=== PATIENT | male | born 1985 | race Caucasian/White ===

== ENCOUNTER → 2021-06-30 10:40 | Outpatient (BNVA) | payer OTHER, SELFPAY | PROVIDERS: PCP Internal Medicine; Referring Provider Internal Medicine; Visit Provider Internal Medicine | DX: R94.31 Abnormal electrocardiogram [ECG] [EKG] (principal); R00.0 Tachycardia, unspecified; I10 Essential (primary) hypertension; F10.10 Alcohol abuse, uncomplicated; Z72.0 Tobacco use | CPT/HCPCS: 93005; 99202 ==

== ENCOUNTER 2023-04-02 11:06 | Outpatient (REF) | payer OTHER, SELFPAY ==
[2023-04-02 13:11] LABS: MANUAL DIFF FLAG NO
[2023-04-02 13:27] LABS: Basophils Percent Auto 0.3 % (0-2); Eosinophils Absolute Auto 0.1 X10*3/uL (0.0-0.4); Eosinophils Percent Auto 0.7 % (0-4); Hematocrit 45.2 % (42.0-52.0); Hemoglobin 15.8 g/dl (14.0-18.0); Imm Gran Abs Auto 0.06 X10*3/uL (0.00-0.03); Imm Gran Pct Auto 0.4 % (0.0-0.4); Lymphocytes Percent Auto 22.7 % (20-40); Mean Corpuscular Hemoglobin 32.4 pg (27.0-33.0); Mean Corpuscular Volume 92.6 fL (80.0-98.0); Mean Platelet Volume 10.8 fL (9.4-12.4); Monocytes Absolute Auto 0.7 X10*3/uL (0.1-1.2); Monocytes Percent Auto 5.2 % (2-11); Neutrophils Absolute Auto 9.5 x10*3/uL (2.0-8.3); Neutrophils Percent Auto 70.7 % (45-73); Platelet Count 196 X10*3/uL (160-400); Red Blood Count 4.88 X10*6/uL (4.60-5.80); Red Cell Distribution Width 13.4 % (11.0-16.0); White Blood Count 13.4 X10*3/uL (4.8-10.8)
[2023-04-02 15:16] LABS: Alanine Aminotransferase 37 U/L (0-40); Albumin Level 4.4 g/dL (3.5-5.0); Alkaline Phosphatase 98 U/L (39-117); Anion Gap 17 (12-20); Aspartate Amino Transferase 24 U/L (5-37); Bilirubin Total 0.5 mg/dL (0.0-1.0); Blood Urea Nitrogen 9 mg/dL (9-16); Calcium 9.6 mg/dL (8.4-10.2); Carbon Dioxide 21 mmol/L (22-29); Chloride 105 mmol/L (96-108); Estimated Glomerular Filt Rate > 60; Glucose Random 84 mg/dL (60-115); Potassium 4.2 mmol/L (3.3-5.1); Sodium 139 mmol/L (135-145); Total Protein 7.7 g/dL (6.5-8.0)
[2023-04-05 10:33] LABS: Absolute CD3 Count 2173 cells/uL (840-3060); Absolute CD4 Count 1287 cells/uL (490-1740); Absolute CD8 Count 902 cells/uL (180-1170); Absolute Lymphocytes 3236 cells/uL (850-3900); CD4 CD8 Ratio 1.43 (0.86-5.00); Percent CD3 Cells 67 % (57-85); Percent CD4 Cells 40 % (30-61); Percent CD8 Cells 28 % (12-42)
[2023-04-06 20:13] LABS: HIV RNA PCR Qn Copies 39 copies/mL (NOT DETECTED); HIV RNA PCR Qn Log Copies 1.59 (NOT DETECTED)
== END 2023-04-02 11:07 | disposition home or self-care (01) ==
LOC: HO.HHCL 11:06
PROVIDERS: Visit Provider Family Medicine
DX: B20 Human immunodeficiency virus [HIV] disease (principal)
CPT/HCPCS: 36415; 80053; 85025; 86359; 86360; 87536

== ENCOUNTER 2023-10-07 08:19 | Outpatient (REF) | payer OTHER, SELFPAY ==
[2023-10-07 11:29] LABS: MANUAL DIFF FLAG NO
[2023-10-07 11:42] LABS: Basophils Percent Auto 0.3 % (0-2); Eosinophils Percent Auto 0.3 % (0-4); Hematocrit 46.3 % (42.0-52.0); Hemoglobin 16.1 g/dl (14.0-18.0); Imm Gran Abs Auto 0.06 X10*3/uL (0.00-0.03); Imm Gran Pct Auto 0.4 % (0.0-0.4); Lymphocytes Absolute Auto 1.9 X10*3/uL (1.2-4.9); Lymphocytes Percent Auto 13.9 % (20-40); Mean Corpuscular HGB Conc 34.8 g/dl (31.0-36.0); Mean Corpuscular Volume 94.9 fL (80.0-98.0); Mean Platelet Volume 11.2 fL (9.4-12.4); Monocytes Absolute Auto 0.6 X10*3/uL (0.1-1.2); Monocytes Percent Auto 4.3 % (2-11); Neutrophils Absolute Auto 11.1 x10*3/uL (2.0-8.3); Neutrophils Percent Auto 80.8 % (45-73); Platelet Count 187 X10*3/uL (160-400); Red Blood Count 4.88 X10*6/uL (4.60-5.80); Red Cell Distribution Width 13.8 % (11.0-16.0); White Blood Count 13.7 X10*3/uL (4.8-10.8)
[2023-10-07 12:23] LABS: Alanine Aminotransferase 31 U/L (0-40); Albumin Level 4.5 g/dL (3.5-5.0); Alkaline Phosphatase 92 U/L (39-117); Anion Gap 13 (12-20); Aspartate Amino Transferase 26 U/L (5-37); Bilirubin Total 0.6 mg/dL (0.0-1.0); Blood Urea Nitrogen 10 mg/dL (9-16); Calcium 9.5 mg/dL (8.4-10.2); Carbon Dioxide 24 mmol/L (22-29); Chloride 105 mmol/L (96-108); Cholesterol 139 mg/dL (<200); Estimated Glomerular Filt Rate > 60; Glucose Random 98 mg/dL (60-115); HDL Cholesterol 26 mg/dL (>40); LDL Cholesterol Calculated 72 mg/dL (<100); Potassium 4.1 mmol/L (3.3-5.1); Sodium 138 mmol/L (135-145); Syphilis Screen Nonreactive (Nonreactive); Total Protein 7.9 g/dL (6.5-8.0); Triglycerides 205 mg/dL (<150); ~HepC Num1 0.07 S/CO (0.00-0.79); ~Hepatitis C Antibody Nonreactive (Nonreactive)
[2023-10-07 13:29] LABS: CT PCR NOT DETECTED (Not Detect.); NG PCR NOT DETECTED (Not Detect.)
[2023-10-07 13:34] LABS: Reflex LDLD? No
[2023-10-08 12:24] LABS: Absolute CD3 Count 1375 cells/uL (840-3060); Absolute CD4 Count 831 cells/uL (490-1740); Absolute CD8 Count 544 cells/uL (180-1170); Absolute Lymphocytes 1898 cells/uL (850-3900); CD4 CD8 Ratio 1.53 (0.86-5.00); Percent CD3 Cells 72 % (57-85); Percent CD4 Cells 44 % (30-61); Percent CD8 Cells 29 % (12-42)
[2023-10-08 18:52] LABS: HIV RNA PCR Qn Copies 179 copies/mL (NOT DETECTED); HIV RNA PCR Qn Log Copies 2.25 (NOT DETECTED)
[2023-10-10 17:17] LABS: TS Negative Control Passed; TS Panel A 1; TS Panel B 1; TS Positive Control Passed; TSpotTB Negative (Negative)
== END 2023-10-07 08:20 | disposition home or self-care (01) ==
LOC: HO.HHCL 08:19
PROVIDERS: PCP Student in an Organized Health Care Education/Training Program; Visit Provider Student in an Organized Health Care Education/Training Program
DX: B20 Human immunodeficiency virus [HIV] disease (principal)
CPT/HCPCS: 0353U; 80053; 80061; 85025; 86359; 86360; 86481; 86780; 86803; 87536

== ENCOUNTER 2023-12-09 15:14 | Outpatient (REF) | payer OTHER, SELFPAY ==
[2023-12-10 03:43] LABS: HBS Num1 > 1000.00 mIU/mL (0-7.99); HBc Num1 0.06 S/CO (0.00-0.79); Hepatitis B Core Antibody Nonreactive (Nonreactive); ~Hepatitis B Surface Antibody REACTIVE (Nonreactive)
[2023-12-11 18:58] LABS: HIV RNA PCR Qn Copies 335 copies/mL (NOT DETECTED); HIV RNA PCR Qn Log Copies 2.53 (NOT DETECTED)
== END 2023-12-09 15:15 | disposition home or self-care (01) ==
LOC: HO.CHCLDS 15:14
PROVIDERS: Referring Provider Student in an Organized Health Care Education/Training Program; Visit Provider Internal Medicine
DX: B20 Human immunodeficiency virus [HIV] disease (principal); Z11.59 Encounter for screening for other viral diseases
CPT/HCPCS: 36415; 86704; 86706; 87536

== ENCOUNTER 2023-12-15 13:09 | Outpatient (REF) | payer OTHER, SELFPAY ==
[2024-01-01 02:08] LABS: HIV 1 Integrase Proviral DNA DETECTED; HIV 1 PR RT Proviral DNA DETECTED
== END 2023-12-15 13:10 | disposition home or self-care (01) ==
LOC: HO.HHCL 13:09
PROVIDERS: Visit Provider Student in an Organized Health Care Education/Training Program
DX: B20 Human immunodeficiency virus [HIV] disease (principal)
CPT/HCPCS: 36415; 87900; 87901; 87906

== ENCOUNTER 2023-12-27 14:56 | Outpatient (REF) | payer OTHER, SELFPAY ==
[2023-12-30 17:04] LABS: HIV RNA PCR Qn Copies <20 Copies/mL; HIV RNA PCR Qn Log Copies <1.30 Log cps/mL
[2024-01-08 09:44] LABS: HIV 1 Integrase Proviral DNA DETECTED; HIV 1 PR RT Proviral DNA DETECTED
== END 2023-12-27 14:57 | disposition home or self-care (01) ==
LOC: HO.HHCL 14:56
PROVIDERS: Visit Provider Student in an Organized Health Care Education/Training Program
DX: B20 Human immunodeficiency virus [HIV] disease (principal)
CPT/HCPCS: 36415; 87536; 87900; 87901; 87906

== ENCOUNTER 2024-01-03 | Outpatient (REF) | payer OTHER, SELFPAY ==
[2024-01-21 07:03] LABS: HPV MRNA E6/E7 Rectal NOT DETECTED
== END 2024-01-03 00:01 | disposition home or self-care (01) ==
LOC: HO.HHCL
PROVIDERS: Visit Provider Student in an Organized Health Care Education/Training Program
DX: B20 Human immunodeficiency virus [HIV] disease (principal); R85.610 Atypical squamous cells of undetermined significance on cytologic smear of anus (ASC-US)
CPT/HCPCS: 36415; 87624

== ENCOUNTER 2024-06-22 13:51 | Outpatient (REF) | payer OTHER, SELFPAY ==
[2024-06-22 17:02] LABS: MANUAL DIFF FLAG NO
[2024-06-22 17:10] LABS: Basophils Percent Auto 0.4 % (0-2); Eosinophils Absolute Auto 0.1 X10*3/uL (0.0-0.4); Eosinophils Percent Auto 0.8 % (0-4); Hematocrit 44.9 % (42.0-52.0); Imm Gran Abs Auto 0.03 X10*3/uL (0.00-0.03); Imm Gran Pct Auto 0.3 % (0.0-0.4); Lymphocytes Absolute Auto 2.3 X10*3/uL (1.2-4.9); Lymphocytes Percent Auto 24.7 % (20-40); Mean Corpuscular HGB Conc 35.6 g/dl (31.0-36.0); Mean Corpuscular Hemoglobin 33.5 pg (27.0-33.0); Mean Corpuscular Volume 94.1 fL (80.0-98.0); Mean Platelet Volume 10.8 fL (9.4-12.4); Monocytes Absolute Auto 0.6 X10*3/uL (0.1-1.2); Monocytes Percent Auto 5.8 % (2-11); Neutrophils Absolute Auto 6.4 x10*3/uL (2.0-8.3); Platelet Count 177 X10*3/uL (160-400); Red Blood Count 4.77 X10*6/uL (4.60-5.80); Red Cell Distribution Width 12.6 % (11.0-16.0); White Blood Count 9.5 X10*3/uL (4.8-10.8)
[2024-06-22 17:29] LABS: Alanine Aminotransferase 78 U/L (0-40); Albumin Level 4.5 g/dL (3.5-5.0); Alkaline Phosphatase 108 U/L (39-117); Anion Gap 15 (12-20); Aspartate Amino Transferase 56 U/L (5-37); Bilirubin Total 0.5 mg/dL (0.0-1.0); Blood Urea Nitrogen 8 mg/dL (9-16); Calcium 9.5 mg/dL (8.4-10.2); Carbon Dioxide 22 mmol/L (22-29); Chloride 106 mmol/L (96-108); Estimated Glomerular Filt Rate > 60; Glucose Random 114 mg/dL (60-115); Potassium 3.7 mmol/L (3.3-5.1); Sodium 139 mmol/L (135-145); Total Protein 7.9 g/dL (6.5-8.0)
[2024-06-22 17:38] LABS: Estimated Average Glucose 100 mg/dL; Hemoglobin A1C 141.3478 umol/L; Hemoglobin A1c % 5.1 % (<6.0); Total Hemoglobin (HGBA1C) 4420.7184 umol/L
[2024-06-23 14:08] LABS: HIV RNA PCR Qn Copies 138 copies/mL (NOT DETECTED); HIV RNA PCR Qn Log Copies 2.14 (NOT DETECTED)
== END 2024-06-22 13:52 | disposition home or self-care (01) ==
LOC: HO.HHCL 13:51
PROVIDERS: Visit Provider Student in an Organized Health Care Education/Training Program
DX: Z21 Asymptomatic human immunodeficiency virus [HIV] infection status (principal); Z13.1 Encounter for screening for diabetes mellitus
CPT/HCPCS: 36415; 80053; 83036; 85025; 86787; 87536

== ENCOUNTER 2024-07-19 09:23 | Outpatient (REF) | payer OTHER, SELFPAY ==
[2024-07-19 12:10] LABS: Albumin Level 4.4 g/dL (3.5-5.0); Alkaline Phosphatase 100 U/L (39-117); Anion Gap 13 (12-20); Aspartate Amino Transferase 34 U/L (5-37); Bilirubin Total 0.5 mg/dL (0.0-1.0); Blood Urea Nitrogen 10 mg/dL (9-16); Calcium 9.4 mg/dL (8.4-10.2); Carbon Dioxide 26 mmol/L (22-29); Chloride 104 mmol/L (96-108); Estimated Glomerular Filt Rate > 60; Glucose Random 101 mg/dL (60-115); Potassium 4.3 mmol/L (3.3-5.1); Sodium 139 mmol/L (135-145); Total Protein 7.7 g/dL (6.5-8.0)
[2024-07-19 12:34] LABS: Alanine Aminotransferase 49 U/L (0-40)
[2024-07-21 14:39] LABS: HIV RNA PCR Qn Copies 162 copies/mL (NOT DETECTED); HIV RNA PCR Qn Log Copies 2.21 (NOT DETECTED)
== END 2024-07-19 09:24 | disposition home or self-care (01) ==
LOC: HO.HHCL 09:23
PROVIDERS: Visit Provider Student in an Organized Health Care Education/Training Program
DX: Z21 Asymptomatic human immunodeficiency virus [HIV] infection status (principal)
CPT/HCPCS: 36415; 80053; 87536

== ENCOUNTER 2024-10-03 10:27 | Outpatient (REF) | payer OTHER, SELFPAY ==
--- OUTSIDE RECORDS SUMMARY | 2024-10-03 11:18 | XMS_ITS | Clinical Summary ---
Author Organization [facility] Address [address] [place] [address] Care Team Providers Care Fish Protector Name Role Phone Unavailable Primary Care Provider Unavailabl e Source Comments PLEASE NOTE, if this patient is a minor, it may be UNLAWFUL to discuss sensitive information that is contained in these records (such as FAMILY PLANNING, MENTAL HEALTH or SUBSTANCE ABUSE) with the minor patient's parent or other person without the patient's specific authorization.[facility] Allergies No known active allergies Medications lysine 500 mg tab tabIndications: Recurrent canker sores Take 1 Tab by mouth 2 (two) times daily. 4 Active paliperidone palm, 3-month, (INVEGA TRINZA) 410 mg/1.315 mL injectionIndica tions:Schizophr enia, paranoid ([facility]) Inject 1.315 mL into the muscle every 3 (three) months. 6 Active DENTAGEL 1.1 % gel Take 1 Tube by mouth 2 (two) times daily Per [facility] dental. [place] with this twice a day. 5 7 Active QUEtiapine (SEROQUEL) 100 mg tablet PER PSYCH 8 Active TRIUMEQ 600-50-300 mg tabIndications: AIDS (HCC-CMS) TAKE 1 TABLET BY MOUTH EVERY DAY 30 Tab 5 9 Active loratadine (CLARITIN) 10 mg tabletIndicatio ns:Allergic rhinitis TAKE 1 TAB BY MOUTH ONCE DAILY NEEDED FOR ALLERGIES 30 Tab 9 Active fluticasone propionate (FLONASE) 50 mcg/actuation nasal sprayIndication s:Allergic rhinitis Place 1 [place] in both nostrils 2 (two) times daily Further refills requires appt with PCP 16 mL 0 Active Active Problems Problem Noted Date Diagnosed Date Immune to hepatitis B 06/29/2018 Immune to varicella 06/29/2018 Alcoholic fatty liver 04/14/2018 Overview (04/14/2018): Liver U/S 04/11/18 at [facility] shows increased hepatic echotexture c/w fatty infiltration. Alcohol abuse 06/03/2016 Allergic rhinitis 12/18/2014 Insomnia 12/18/2014 Overview (12/18/2014): F/u psych. Schizophrenia, paranoid ([facility]) 07/17/2014 Overview (07/17/2014): Psych f/u [facility]. Vitamin D deficiency 03/15/2013 AIDS ([facility]) Overview (03/26/2015): DX HIV positive in 2005. CD4 < 200 07/24/08 HLA B5701 negative through labwork 03/18/15 Polysubstance abuse ([facility]) Overview (03/15/2013): HX IVDA Mental disorder Overview (03/15/2013): HX Schizophrenia Tobacco abuse disorder Immunizations Name Administration Dates Next Due Flu, Preservative Free 05/06/2018,06/03/2016 INFLUENZA VIRUS VACCINE P&EMIC FORMULATION 06/24,06/04/2010 INFLUENZA, SEASONAL, INJECTABLE 05/21/2017,06/06,07/12/2014 MENINGOCOCCAL MCV4P (MENACTRA) 07/13/2018,2016 MMR (MMR II/Priorix) 08/18/2018,07/13/2018 PNEUMOCOCCAL CONJUGATE PCV 13 09/03/2015 PNEUMOCOCCAL POLYSACCHARIDE PPV23 07/12/2014,06/2008 TDAP 08/14/2014 Td(adult),2 Lf tetanus toxoi d,preservative free 06/04/2010 Social History Tobacco Use Types Packs/Day Years Used Date Smoking Tobacco: Every Day Cigarettes 1 21 Smokeless Tobacco: Current Chew Tobacco Cessation:Ready to Q uit: Yes; Counseling Given: Yes Comments:Started age 11 Alcohol Use Standard Drinks/Week Comments No 0 (1 standard drink = 0.6 oz pur e alcohol) 3 25 oz beers/day Social Connections Answer Date Recorded Social Connections and Isolation 0 04/22/2019 Financial Resource Strain Answer Date R ecorded Financial Resource Strain 0 2018 Stress Answer Date Recorded Stress 0 04/22/2019 Physical Activity Answer Date Recorded Physical Activity 0 04/22/2019 Food Insecurity Answer Date Recorded Food 0 04/22/2019 Transportation Needs Answer Date Record ed Transportation 0 04/22/2019 Housing Stability Answer Date Recorded Housing 0 04/22/2019 Safety and Environment Answer Date [place] rded Safety 0 04/22/2019 Utilities Answer Date Recorded Utilities 0 04/22/2019 Employment Answer Date Recorded Employment 0 04/22/2019 Sex and Gender Information Value Date Recorded Sex Assigned at Male 06/08/2017 12:13 PM PDT Legal Sex Male 11:36 AM PDT Gender Identity Male 06/08/2017 12:13 PM PDT Sexual Orientation Straight 06/08/2017 12 :13 PM PDT Last Filed Vital Signs Vital Sign Reading Time Taken Comments Blood Pressure 130/88 06/28/2018 12:39 PM EDT Pulse 80 04/06/2018 11:25 AM EDT Temperature 37.2 ??C (98.9 ??F) 04/06/2018 11:25 AM E DT Respiratory Rate 16 04/06/2018 11:25 AM EDT Oxygen Saturation 97% 01/02/2016 3:43 PM EDT RA Inhaled Oxygen Concentration - - Weight 88.7 kg (195 lb 8 oz) 06/28/2018 12:39 PM EDT Height 178 cm (5' 10.08 ) 04/06/2018 11:25 AM ED T Body Mass Index 27.99 04/06/2018 11:25 AM EDT Plan of Treatment Not on file Insurance [facility] Member Subscriber Plan / Payer (Ef fective 2016-Present) Name:Samreenbraydon Radu Relation to Subscriber:Self Name:Radu West Payer ID:[id number] Group ID:Not on file Type:[employer] Address: [facility] [address] [id number]
[2024-10-03 11:32] LABS: MANUAL DIFF FLAG NO
[2024-10-03 11:42] LABS: Basophils Percent Auto 0.2 % (0-2); Eosinophils Absolute Auto 0.1 X10*3/uL (0.0-0.4); Eosinophils Percent Auto 0.4 % (0-4); Hematocrit 44.7 % (42.0-52.0); Hemoglobin 15.5 g/dl (14.0-18.0); Imm Gran Abs Auto 0.04 X10*3/uL (0.00-0.03); Imm Gran Pct Auto 0.3 % (0.0-0.4); Lymphocytes Absolute Auto 2.2 X10*3/uL (1.2-4.9); Lymphocytes Percent Auto 16.9 % (20-40); Mean Corpuscular HGB Conc 34.7 g/dl (31.0-36.0); Mean Corpuscular Volume 95.1 fL (80.0-98.0); Mean Platelet Volume 11.1 fL (9.4-12.4); Monocytes Absolute Auto 0.6 X10*3/uL (0.1-1.2); Monocytes Percent Auto 4.6 % (2-11); Neutrophils Percent Auto 77.6 % (45-73); Platelet Count 183 X10*3/uL (160-400); Red Cell Distribution Width 12.8 % (11.0-16.0); White Blood Count 12.9 X10*3/uL (4.8-10.8)
[2024-10-03 12:06] LABS: Alanine Aminotransferase 37 U/L (0-40); Albumin Level 4.6 g/dL (3.5-5.0); Alkaline Phosphatase 88 U/L (39-117); Anion Gap 17 (12-20); Aspartate Amino Transferase 27 U/L (5-37); Bilirubin Total 0.6 mg/dL (0.0-1.0); Blood Urea Nitrogen 10 mg/dL (9-16); Calcium 9.1 mg/dL (8.4-10.2); Carbon Dioxide 24 mmol/L (22-29); Chloride 103 mmol/L (96-108); Estimated Glomerular Filt Rate > 60; Glucose Random 93 mg/dL (60-115); Potassium 4.2 mmol/L (3.3-5.1); Sodium 140 mmol/L (135-145); Total Protein 8.2 g/dL (6.5-8.0)
[2024-10-05 13:39] LABS: HIV RNA PCR Qn Copies 113 copies/mL (NOT DETECTED); HIV RNA PCR Qn Log Copies 2.05 (NOT DETECTED)
== END 2024-10-03 10:28 | disposition home or self-care (01) ==
LOC: HO.HHCL 10:27
PROVIDERS: Visit Provider Internal Medicine
DX: Z21 Asymptomatic human immunodeficiency virus [HIV] infection status (principal)
CPT/HCPCS: 36415; 80053; 82550; 85025; 87536

== ENCOUNTER 2024-10-31 10:47 | Outpatient (REF) | payer OTHER, SELFPAY ==
[2024-10-31 11:25] LABS: MANUAL DIFF FLAG NO
[2024-10-31 11:35] LABS: Basophils Percent Auto 0.5 % (0-2); Eosinophils Absolute Auto 0.1 X10*3/uL (0.0-0.4); Eosinophils Percent Auto 1.7 % (0-4); Hematocrit 43.6 % (42.0-52.0); Hemoglobin 14.8 g/dl (14.0-18.0); Imm Gran Abs Auto 0.03 X10*3/uL (0.00-0.03); Imm Gran Pct Auto 0.4 % (0.0-0.4); Lymphocytes Percent Auto 26.8 % (20-40); Mean Corpuscular HGB Conc 33.9 g/dl (31.0-36.0); Mean Corpuscular Hemoglobin 31.8 pg (27.0-33.0); Mean Corpuscular Volume 93.8 fL (80.0-98.0); Mean Platelet Volume 10.9 fL (9.4-12.4); Monocytes Absolute Auto 0.5 X10*3/uL (0.1-1.2); Neutrophils Absolute Auto 4.8 x10*3/uL (2.0-8.3); Neutrophils Percent Auto 63.6 % (45-73); Platelet Count 167 X10*3/uL (160-400); Red Blood Count 4.65 X10*6/uL (4.60-5.80); Red Cell Distribution Width 12.9 % (11.0-16.0); White Blood Count 7.6 X10*3/uL (4.8-10.8)
[2024-10-31 12:19] LABS: Alanine Aminotransferase 52 U/L (0-40); Albumin Level 4.4 g/dL (3.5-5.0); Alkaline Phosphatase 92 U/L (39-117); Anion Gap 13 (12-20); Aspartate Amino Transferase 37 U/L (5-37); Bilirubin Total 0.4 mg/dL (0.0-1.0); Blood Urea Nitrogen 11 mg/dL (9-16); Calcium 8.9 mg/dL (8.4-10.2); Carbon Dioxide 26 mmol/L (22-29); Chloride 106 mmol/L (96-108); Estimated Glomerular Filt Rate > 60; Glucose Random 93 mg/dL (60-115); Sodium 141 mmol/L (135-145)
[2024-11-01 15:54] LABS: HIV RNA PCR Qn Copies <20 DETECTED copies/mL (NOT DETECTED); HIV RNA PCR Qn Log Copies <1.30 DETECTED (NOT DETECTED)
== END 2024-10-31 10:48 | disposition home or self-care (01) ==
LOC: HO.HHCL 10:47
PROVIDERS: Visit Provider Internal Medicine
DX: Z21 Asymptomatic human immunodeficiency virus [HIV] infection status (principal)
CPT/HCPCS: 36415; 80053; 82550; 85025; 87536

== ENCOUNTER 2025-01-08 15:03 | Outpatient (REF) | payer OTHER, SELFPAY ==
--- OUTSIDE RECORDS SUMMARY | 2025-01-08 15:06 | XMS_ITS | Clinical Summary ---
Author Organization [facility] Address [address] [place] [address] Care Team Providers Care Transplant Nurse Name Role Phone Unavailable Primary Care Provider [...] 410 mg/1.315 mL injectionIndica tions:Schizophr enia, paranoid ([facility]) Inject 1.315 mL into the muscle every 3 (three) months. 6 Active DENTAGEL 1.1 % gel Take 1 Tube by mouth 2 (two) times daily Per [facility] dental. [place] with this twice a day. 5 7 [...] mcg/actuation nasal sprayIndication s:Allergic rhinitis Place 1 [place] in both nostrils 2 (two) times daily Further refills requires appt with PCP 16 mL 0 Active Active Problems Problem Noted Date Diagnosed Date Immune to hepatitis B 06/29/2018 Immune to varicella 06/29/2018 Alcoholic fatty liver 04/14/2018 Overview (04/14/2018): Liver U/S 04/11/18 at [facility] shows increased hepatic echotexture c/w fatty infiltration. Alcohol abuse 06/03/2016 Allergic rhinitis 12/18/2014 Insomnia 12/18/2014 Overview (12/18/2014): F/u psych. Schizophrenia, paranoid ([facility]) 07/17/2014 Overview (07/17/2014): Psych f/u [facility]. Vitamin D deficiency 03/15/2013 AIDS ([facility]) Overview (03/26/2015): DX HIV positive in 2005. CD4 < 200 07/24/08 HLA B5701 negative through labwork 03/18/15 Polysubstance abuse ([facility]) Overview (03/15/2013): HX IVDA Mental disorder Overview (03/15/2013): HX Schizophrenia Tobacco abuse disorder Immunizations Immunization Administration Dates Next Due Flu, Preservative Free 05/06/2018,06/03/2016 INFLUENZA VIRUS VACCINE P&EMIC FORMULATION 06/24,06/04/2010 INFLUENZA, SEASONAL, INJECTABLE 05/21/2017,06/06,07/12/2014 MENINGOCOCCAL MCV4P (MENACTRA) 07/13/2018,2016 MMR (MMR II/Priorix) 08/18/2018,07/13/2018 PNEUMOCOCCAL CONJUGATE PCV 13 09/03/2015 PNEUMOCOCCAL POLYSACCHARIDE PPV23 (Pneumovax 23) 07/12/2014,05/10/2008 TDAP 08/14/2014 Td(adult),2 Lf tetanus toxoi d,preservative [...] Plan of Treatment Not on file Insurance [facility] Member Subscriber Plan / Payer (Ef fective 2016-Present) Name:Radu West Relation to Subscriber:Self Name:Radu West Payer ID:[id number] Group ID:Not on file Type:[place] Address: [address] [place] [address]
[2025-01-08 16:11] LABS: MANUAL DIFF FLAG NO
[2025-01-08 16:21] LABS: Basophils Percent Auto 0.4 % (0-2); Eosinophils Absolute Auto 0.1 X10*3/uL (0.0-0.4); Eosinophils Percent Auto 1.2 % (0-4); Hematocrit 46.9 % (42.0-52.0); Hemoglobin 16.1 g/dl (14.0-18.0); Imm Gran Abs Auto 0.04 X10*3/uL (0.00-0.03); Imm Gran Pct Auto 0.4 % (0.0-0.4); Lymphocytes Absolute Auto 2.7 X10*3/uL (1.2-4.9); Mean Corpuscular HGB Conc 34.3 g/dl (31.0-36.0); Mean Corpuscular Hemoglobin 32.1 pg (27.0-33.0); Mean Corpuscular Volume 93.6 fL (80.0-98.0); Mean Platelet Volume 10.6 fL (9.4-12.4); Monocytes Absolute Auto 0.7 X10*3/uL (0.1-1.2); Monocytes Percent Auto 5.8 % (2-11); Neutrophils Absolute Auto 7.7 x10*3/uL (2.0-8.3); Neutrophils Percent Auto 68.2 % (45-73); Platelet Count 170 X10*3/uL (160-400); Red Blood Count 5.01 X10*6/uL (4.60-5.80); Red Cell Distribution Width 13.4 % (11.0-16.0); White Blood Count 11.2 X10*3/uL (4.8-10.8)
[2025-01-08 16:44] LABS: Alanine Aminotransferase 58 U/L (0-40); Albumin Level 4.5 g/dL (3.5-5.0); Anion Gap 14 (12-20); Aspartate Amino Transferase 39 U/L (5-37); Bilirubin Total 0.5 mg/dL (0.0-1.0); Blood Urea Nitrogen 8 mg/dL (9-16); Calcium 9.3 mg/dL (8.4-10.2); Carbon Dioxide 25 mmol/L (22-29); Chloride 104 mmol/L (96-108); Estimated Glomerular Filt Rate > 60; Glucose Random 111 mg/dL (60-115); Potassium 3.9 mmol/L (3.3-5.1); Sodium 139 mmol/L (135-145); Total Protein 7.6 g/dL (6.5-8.0)
[2025-01-08 16:49] LABS: Alkaline Phosphatase 92 U/L (39-117)
[2025-01-12 17:03] LABS: Absolute CD3 Count 2082 cells/uL (840-3060); Absolute CD4 Count 1204 cells/uL (490-1740); Absolute CD8 Count 910 cells/uL (180-1170); Absolute Lymphocytes 2970 cells/uL (850-3900); CD4 CD8 Ratio 1.32 (0.86-5.00); Percent CD3 Cells 70 % (57-85); Percent CD4 Cells 41 % (30-61); Percent CD8 Cells 31 % (12-42)
== END 2025-01-08 15:04 | disposition home or self-care (01) ==
LOC: HO.HHCL 15:03
PROVIDERS: Visit Provider Student in an Organized Health Care Education/Training Program
DX: Z21 Asymptomatic human immunodeficiency virus [HIV] infection status (principal)
CPT/HCPCS: 36415; 80053; 82550; 85025; 86359; 86360

== ENCOUNTER 2025-01-24 08:26 | Outpatient (REF) | payer OTHER, SELFPAY ==
--- OUTSIDE RECORDS SUMMARY | 2025-01-24 08:44 | XMS_ITS | Clinical Summary ---
Author Organization [facility] Address [address] [place] [address] Care Team Providers Care Chief Pharmacist Name Role Phone Unavailable Primary Care Provider [...] 410 mg/1.315 mL injectionIndica tions:Schizophr enia, paranoid ([facility]) Inject 1.315 mL into the muscle every 3 (three) months. 6 Active DENTAGEL 1.1 % gel Take 1 Tube by mouth 2 (two) times daily Per [facility] dental. [place] with this twice a day. 5 7 [...] mcg/actuation nasal sprayIndication s:Allergic rhinitis Place 1 [place] in both nostrils 2 (two) times daily Further refills requires appt with PCP 16 mL 0 Active Active Problems Problem Noted Date Diagnosed Date Immune to hepatitis B 06/29/2018 Immune to varicella 06/29/2018 Alcoholic fatty liver 04/14/2018 Overview (04/14/2018): Liver U/[place] 04/11/[address] [facility] [place] increased hepatic echotexture c/w fatty infiltration. Alcohol abuse 06/03/2016 Allergic rhinitis 12/18/2014 Insomnia 12/18/2014 Overview (12/18/2014): F/u psych. Schizophrenia, paranoid ([facility]) 07/17/2014 Overview (07/17/2014): Psych f/u [facility]. Vitamin D deficiency 03/15/2013 AIDS ([facility]) Overview (03/26/2015): DX HIV positive in 2005. CD4 < 200 07/24/08 HLA B5701 negative through labwork 03/18/15 Polysubstance abuse ([facility]) Overview (03/15/2013): HX IVDA Mental disorder [...] West Payer ID:[id number] Group ID:Not on file Type:[employer] Address: [address] [place] [address]
[2025-01-24 11:17] LABS: Basophils Absolute Auto 0.1 X10*3/uL (0.0-0.2); Basophils Percent Auto 0.5 % (0-2); Eosinophils Absolute Auto 0.2 X10*3/uL (0.0-0.4); Eosinophils Percent Auto 1.5 % (0-4); Hematocrit 45.2 % (42.0-52.0); Hemoglobin 15.4 g/dl (14.0-18.0); Imm Gran Abs Auto 0.04 X10*3/uL (0.00-0.03); Imm Gran Pct Auto 0.4 % (0.0-0.4); Lymphocytes Absolute Auto 1.8 X10*3/uL (1.2-4.9); Lymphocytes Percent Auto 18.3 % (20-40); MANUAL DIFF FLAG NO; Mean Corpuscular HGB Conc 34.1 g/dl (31.0-36.0); Mean Corpuscular Hemoglobin 31.8 pg (27.0-33.0); Mean Corpuscular Volume 93.4 fL (80.0-98.0); Mean Platelet Volume 11.3 fL (9.4-12.4); Monocytes Absolute Auto 0.6 X10*3/uL (0.1-1.2); Neutrophils Absolute Auto 7.4 x10*3/uL (2.0-8.3); Neutrophils Percent Auto 73.3 % (45-73); Platelet Count 174 X10*3/uL (160-400); Red Blood Count 4.84 X10*6/uL (4.60-5.80); Red Cell Distribution Width 13.5 % (11.0-16.0); White Blood Count 10.1 X10*3/uL (4.8-10.8)
[2025-01-24 12:30] LABS: Alanine Aminotransferase 43 U/L (0-40); Albumin Level 4.6 g/dL (3.5-5.0); Alkaline Phosphatase 86 U/L (39-117); Anion Gap 11 (12-20); Aspartate Amino Transferase 36 U/L (5-37); Blood Urea Nitrogen 11 mg/dL (9-16); Calcium 9.1 mg/dL (8.4-10.2); Carbon Dioxide 25 mmol/L (22-29); Chloride 107 mmol/L (96-108); Cholesterol 123 mg/dL (<200); Estimated Glomerular Filt Rate > 60; Glucose Random 106 mg/dL (60-115); HDL Cholesterol 32 mg/dL (>40); LDL Cholesterol Calculated 70 mg/dL (<100); Sodium 139 mmol/L (135-145); Total Protein 7.5 g/dL (6.5-8.0); Triglycerides 108 mg/dL (<150)
[2025-01-24 12:42] LABS: HBsAGNum1 0.29 S/CO (0.00-0.99); Hepatitis B Surface Antigen Negative (Negative); ~Hepatitis C Antibody Nonreactive (Nonreactive)
[2025-01-24 12:59] LABS: Bilirubin Total 0.6 mg/dL (0.0-1.0)
[2025-01-24 13:00] LABS: Reflex LDLD? No
[2025-01-26 16:09] LABS: RPR Rapid Plasma Reagin NON-REACTIVE (NON-REACTIVE)
[2025-01-26 18:13] LABS: HIV RNA PCR Qn Copies 479 copies/mL (NOT DETECTED); HIV RNA PCR Qn Log Copies 2.68 (NOT DETECTED)
[2025-01-27 15:28] LABS: TS Negative Control Passed; TS Panel A 0; TS Panel B 1; TS Positive Control Passed; TSpotTB Negative (Negative)
== END 2025-01-24 08:27 | disposition home or self-care (01) ==
LOC: HO.HHCL 08:26
PROVIDERS: Visit Provider Student in an Organized Health Care Education/Training Program
DX: Z21 Asymptomatic human immunodeficiency virus [HIV] infection status (principal); Z13.6 Encounter for screening for cardiovascular disorders
CPT/HCPCS: 36415; 80053; 80061; 85025; 86481; 86592; 86803; 87340; 87536

== ENCOUNTER 2025-02-02 10:45 | Outpatient (REF) | payer OTHER, SELFPAY ==
--- OUTSIDE RECORDS SUMMARY | 2025-02-02 11:37 | XMS_ITS | Clinical Summary ---
Author Organization [facility] Address [address] [place] [address] Care Team Providers Care Template Reproduction Technician Name Role Phone Unavailable Primary Care Provider [...] 410 mg/1.315 mL injectionIndica tions:Schizophr enia, paranoid ([facility]) Inject 1.315 mL into the muscle every 3 (three) months. 6 Active DENTAGEL 1.1 % gel Take 1 Tube by mouth 2 (two) times daily Per [facility] dental. [place] with this twice a day. 5 7 [...] mcg/actuation nasal sprayIndication s:Allergic rhinitis Place 1 [place] in both nostrils 2 (two) times daily Further refills requires appt with PCP 16 mL 0 Active Active Problems Problem Noted Date Diagnosed Date Immune to hepatitis B 06/29/2018 Immune to varicella 06/29/2018 Alcoholic fatty liver 04/14/2018 Overview (04/14/2018): [place] [facility] [place] increased hepatic echotexture c/w fatty infiltration. Alcohol abuse 06/03/2016 Allergic rhinitis 12/18/2014 Insomnia 12/18/2014 Overview (12/18/2014): F/u psych. Schizophrenia, paranoid ([facility]) 07/17/2014 Overview (07/17/2014): Psych f/u [facility]. Vitamin D deficiency 03/15/2013 AIDS ([facility]) Overview (03/26/2015): DX HIV positive in 2005. CD4 < 200 07/24/08 HLA B5701 negative through labwork 03/18/15 Polysubstance abuse ([facility]) Overview (03/15/2013): HX IVDA Mental [...]
[2025-02-05 15:32] LABS: HIV RNA PCR Qn Copies 332 copies/mL (NOT DETECTED); HIV RNA PCR Qn Log Copies 2.52 (NOT DETECTED)
== END 2025-02-02 10:46 | disposition home or self-care (01) ==
LOC: HO.HHCL 10:45
PROVIDERS: Visit Provider Student in an Organized Health Care Education/Training Program
DX: Z21 Asymptomatic human immunodeficiency virus [HIV] infection status (principal)
CPT/HCPCS: 36415; 87536

== ENCOUNTER 2025-02-07 09:25 | Outpatient (REF) | payer OTHER, SELFPAY ==
--- OUTSIDE RECORDS SUMMARY | 2025-02-07 10:15 | XMS_ITS | Clinical Summary ---
Author Organization [facility] Address [address] [place] [address] Care Team Providers Care Gymnastic Coach Name Role Phone Unavailable Primary Care Provider [...] 410 mg/1.315 mL injectionIndica tions:Schizophr enia, paranoid ([facility]) Inject 1.315 mL into the muscle every 3 (three) months. 6 Active DENTAGEL 1.1 % gel Take 1 Tube by mouth 2 (two) times daily Per [facility] dental. [place] with this twice a day. 5 7 [...] mcg/actuation nasal sprayIndication s:Allergic rhinitis Place 1 [place] in both nostrils 2 (two) times daily [...] 12/18/2014 Overview (12/18/2014): F/u psych. Schizophrenia, paranoid ([facility]) 07/17/2014 Overview (07/17/2014): Psych f/u [facility]. Vitamin D deficiency 03/15/2013 AIDS ([facility]) Overview (03/26/2015): DX HIV positive in 2005. CD4 < 200 07/24/08 HLA B5701 negative through labwork 03/18/15 Polysubstance abuse ([facility]) Overview (03/15/2013): HX IVDA Mental [...]
[2025-02-20 03:19] LABS: Date Viral Load Collected NG; Dolutegravir Resistance NOT PREDICTED; HIV-1 Bictegravir Resistance NOT PREDICTED; HIV-1 Cabotegravir Resistance NOT PREDICTED; HIV-1 Elvitegravir Resistance NOT PREDICTED; Raltegravir Resistance NOT PREDICTED; Value of Last HIV Viral Load NG copies/mL
[2025-02-25 00:09] LABS: HIV Genotype DETECTED
== END 2025-02-07 09:26 | disposition home or self-care (01) ==
LOC: HO.HHCL 09:25
PROVIDERS: Visit Provider Student in an Organized Health Care Education/Training Program
DX: Z21 Asymptomatic human immunodeficiency virus [HIV] infection status (principal)
CPT/HCPCS: 36415; 87900; 87901; 87906

== ENCOUNTER 2025-02-27 08:33 | Outpatient (REF) | payer OTHER, SELFPAY ==
--- OUTSIDE RECORDS SUMMARY | 2025-02-27 08:42 | XMS_ITS | Clinical Summary ---
Author Organization [facility] Address [address] [place] [address] Care Team Providers Care Wire Hanger Name Role Phone Unavailable Primary Care Provider [...] 410 mg/1.315 mL injectionIndica tions:Schizophr enia, paranoid ([facility]) Inject 1.315 mL into the muscle every 3 (three) months. 6 Active DENTAGEL 1.1 % gel Take 1 Tube by mouth 2 (two) [facility] [place] with this twice a day. 5 7 Active QUEtiapine (SEROQUEL) 100 mg tablet PER PSYCH 8 Active TRIUMEQ 600-50-300 mg tabIndications: AIDS ([facility]) TAKE 1 TABLET BY MOUTH EVERY DAY 30 Tab 5 9 Active loratadine (CLARITIN) 10 mg tabletIndicatio ns:Allergic rhinitis TAKE 1 TAB BY MOUTH ONCE DAILY NEEDED FOR ALLERGIES 30 Tab 9 Active fluticasone propionate (FLONASE) 50 mcg/actuation nasal sprayIndication s:Allergic rhinitis Place 1 [place] in both nostrils 2 (two) times daily Further refills requires appt with PCP 16 mL 0 Active Active Problems Problem Noted Date Diagnosed Date Immune to hepatitis B 06/29/2018 Immune to varicella 06/29/2018 Alcoholic fatty liver 04/14/2018 Overview (04/14/2018): Liver U/S 04/11/18 at [facility] shows increased hepatic echotexture c/w fatty infiltration. Alcohol abuse 06/03/2016 Allergic rhinitis 12/18/2014 Insomnia 12/18/2014 Overview (12/18/2014): F/u psych. Schizophrenia, paranoid ([facility]) 07/17/20 14 Overview (07/17/2014): Psych f/u [facility]. Vitamin D deficiency 03/15/2013 AIDS ([facility]) Overview (03/26/2015): DX HIV positive in 2005. CD4 < 200 07/24/08 HLA B5701 negative through labwork 03/18/15 Polysubstance abuse ([facility]) Overview (03/15/2013): HX IVDA Mental disorder [...] 80 04/06/2018 11:25 AM EDT Temperature 37.2 C (98.9 F) 04/06/2018 11:25 AM EDT Respiratory Rate 16 04/06/2018 11:25 AM EDT Oxygen Saturation 97% 01/02/2016 3:43 PM EDT RA Inhaled Oxygen Concentration - - Weight 88.7 kg (195 lb 8 oz) 06/28/2018 12:39 PM EDT Height 178 cm (5' 10.08 ) 04/06/2018 11:25 AM ED T Body Mass Index 27.99 04/06/2018 11:25 AM EDT Plan of Treatment Not on file Insurance [facility]
[2025-02-27 11:47] LABS: MANUAL DIFF FLAG NO
[2025-02-27 11:54] LABS: Hematocrit 46.0 % (42.0-52.0); Hemoglobin 15.9 g/dl (14.0-18.0); Imm Gran Abs Auto 0.02 X10*3/uL (0.00-0.03); Imm Gran Pct Auto 0.2 % (0.0-0.4); Lymphocytes Absolute Auto 2.7 X10*3/uL (1.2-4.9); Mean Corpuscular HGB Conc 34.6 g/dl (31.0-36.0); Mean Corpuscular Hemoglobin 32.1 pg (27.0-33.0); Mean Corpuscular Volume 92.9 fL (80.0-98.0); NRBC Abs Auto 0.000 X10*3/uL (0.0-0.012); NRBC Pct Auto 0.0 /100WBC (0.0-0.2); Platelet Count 176 X10*3/uL (160-400); Red Blood Count 4.95 X10*6/uL (4.60-5.80); White Blood Count 8.6 X10*3/uL (4.8-10.8)
[2025-02-27 12:20] LABS: Alanine Aminotransferase 71 U/L (0-40); Albumin Level 4.7 g/dL (3.5-5.0); Alkaline Phosphatase 92 U/L (39-117); Anion Gap 14 (12-20); Aspartate Amino Transferase 40 U/L (5-37); Blood Urea Nitrogen 13 mg/dL (9-16); Calcium 9.3 mg/dL (8.4-10.2); Carbon Dioxide 24 mmol/L (22-29); Chloride 106 mmol/L (96-108); Estimated Glomerular Filt Rate > 60; Potassium 4.1 mmol/L (3.3-5.1); Sodium 140 mmol/L (135-145); Total Protein 7.6 g/dL (6.5-8.0)
[2025-02-28 21:59] LABS: HIV RNA PCR Qn Copies 138 copies/mL (NOT DETECTED); HIV RNA PCR Qn Log Copies 2.14 (NOT DETECTED)
== END 2025-02-27 08:34 | disposition home or self-care (01) ==
LOC: HO.HHCL 08:33
PROVIDERS: PCP Student in an Organized Health Care Education/Training Program; Visit Provider Student in an Organized Health Care Education/Training Program
DX: Z21 Asymptomatic human immunodeficiency virus [HIV] infection status (principal)
CPT/HCPCS: 36415; 80053; 85025; 87536

== ENCOUNTER 2025-03-05 16:16 | Outpatient (REF) | payer OTHER, SELFPAY ==
[2025-03-15 16:38] LABS: HPV MRNA E6/E7 Rectal NOT DETECTED
== END 2025-03-05 16:17 | disposition home or self-care (01) ==
LOC: HO.HHCLNP 16:16
PROVIDERS: Visit Provider Student in an Organized Health Care Education/Training Program
DX: Z21 Asymptomatic human immunodeficiency virus [HIV] infection status (principal)
CPT/HCPCS: 36415; 87624; 88112

== ENCOUNTER 2025-04-12 08:47 | Outpatient (REF) | payer OTHER, SELFPAY ==
--- OUTSIDE RECORDS SUMMARY | 2025-04-12 09:02 | XMS_ITS | Clinical Summary ---
Author Organization [facility] Address [address] [place] [address] Care Team Providers Care Retail Sales Director Name Role Phone Unavailable Primary Care Provider [...] 410 mg/1.315 mL injectionIndica tions:Schizophr enia, paranoid ([facility]) Inject 1.315 mL into the muscle every 3 (three) months. 6 Active DENTAGEL 1.1 % gel Take 1 Tube by mouth 2 (two) [facility] [place] with this twice a day. 5 7 Active QUEtiapine (SEROQUEL) 100 mg tablet PER PSYCH 8 Active TRIUMEQ 600-50-300 mg tabIndications: AIDS ([facility]) TAKE 1 TABLET BY MOUTH EVERY DAY 30 Tab 5 9 Active loratadine (CLARITIN) 10 mg tabletIndicatio ns:Allergic rhinitis TAKE 1 TAB BY MOUTH ONCE DAILY NEEDED FOR ALLERGIES 30 Tab 9 Active fluticasone propionate (FLONASE) 50 mcg/actuation nasal sprayIndication s:Allergic rhinitis Place 1 [place] in both nostrils 2 (two) times daily Further refills requires appt with PCP 16 mL 0 Active Active Problems Problem Noted Date Diagnosed Date Immune to hepatitis B 06/29/2018 Immune to varicella 06/29/2018 Alcoholic fatty liver 04/14/2018 Overview (04/14/2018): Liver U/S 04/11/18 at [facility] [place] shows increased hepatic echotexture c/w fatty infiltration. Alcohol abuse 06/03/2016 Allergic rhinitis 12/18/2014 Insomnia 12/18/2014 Overview (12/18/2014): F/u psych. Schizophrenia, paranoid ([facility]) 07/17/20 14 Overview (07/17/2014): Psych f/u [facility]. Vitamin D deficiency 03/15/2013 AIDS ([facility]) Overview (03/26/2015): DX HIV positive in 2005. CD4 < 200 07/24/08 HLA B5701 negative through labwork 03/18/15 Polysubstance abuse ([facility]) Overview (03/15/2013): HX IVDA Mental disorder Overview (03/15/2013): HX Schizophrenia Tobacco abuse disorder Immunizations Immunization Administration Dates Next Due Flu, Preservative Free 05/06/2018,06/03/2016 INFLUENZA VIRUS VACCINE P&EMIC FORMULATION 06/24,06/04/2010 INFLUENZA, SEASONAL, INJECTABLE 05/21/2017,06/06,07/12/2014 MENINGOCOCCAL MCV4P (MENACTRA) 07/13/2018,2016 MMR (MMR II/Priorix) 08/18/2018,07/13/2018 PNEUMOCOCCAL CONJUGATE PCV 13 09/03/2015 PNEUMOCOCCAL POLYSACCHARIDE PPV23 (Pneumovax 23) 07/12/2014,05/10/2008 TDAP 08/14/2014 Td (adult),2 Lf tetanus toxo id (TDVAX), preservative free 06/04/2010 Social History Tobacco Use Types [...] Plan of Treatment Not on file Insurance [facility]
[2025-04-12 11:27] LABS: MANUAL DIFF FLAG NO
[2025-04-12 11:37] LABS: Hematocrit 42.4 % (42.0-52.0); Hemoglobin 14.6 g/dl (14.0-18.0); Imm Gran Abs Auto 0.05 X10*3/uL (0.00-0.03); Imm Gran Pct Auto 0.4 % (0.0-0.4); Lymphocytes Absolute Auto 2.7 X10*3/uL (1.2-4.9); Mean Corpuscular HGB Conc 34.4 g/dl (31.0-36.0); Mean Corpuscular Hemoglobin 31.7 pg (27.0-33.0); Mean Corpuscular Volume 92.2 fL (80.0-98.0); NRBC Abs Auto 0.000 X10*3/uL (0.0-0.012); NRBC Pct Auto 0.0 /100WBC (0.0-0.2); Platelet Count 164 X10*3/uL (160-400); Red Blood Count 4.60 X10*6/uL (4.60-5.80); White Blood Count 11.6 X10*3/uL (4.8-10.8)
[2025-04-12 12:09] LABS: Alanine Aminotransferase 45 U/L (0-40); Albumin Level 4.7 g/dL (3.5-5.0); Alkaline Phosphatase 86 U/L (39-117); Anion Gap 12 (12-20); Aspartate Amino Transferase 41 U/L (5-37); Blood Urea Nitrogen 17 mg/dL (9-16); Calcium 9.2 mg/dL (8.4-10.2); Carbon Dioxide 24 mmol/L (22-29); Chloride 106 mmol/L (96-108); Estimated Glomerular Filt Rate > 60; Potassium 4.1 mmol/L (3.3-5.1); Sodium 138 mmol/L (135-145); Thyroid Stimulating Hormone 1.51 uIU/mL (0.32-4.0); Total Protein 7.5 g/dL (6.5-8.0)
[2025-04-13 15:28] LABS: HIV RNA PCR Qn Copies 136 copies/mL (NOT DETECTED); HIV RNA PCR Qn Log Copies 2.13 (NOT DETECTED)
== END 2025-04-12 08:48 | disposition home or self-care (01) ==
LOC: HO.HHCL 08:47
PROVIDERS: PCP Student in an Organized Health Care Education/Training Program; Visit Provider Student in an Organized Health Care Education/Training Program
DX: Z21 Asymptomatic human immunodeficiency virus [HIV] infection status (principal); Z13.29 Encounter for screening for other suspected endocrine disorder
CPT/HCPCS: 36415; 80053; 84443; 85025; 87536

== ENCOUNTER 2025-07-03 09:56 | Outpatient (REF) | payer OTHER, SELFPAY ==
--- OUTSIDE RECORDS SUMMARY | 2025-07-03 11:26 | XMS_ITS | Clinical Summary ---
Author Organization [facility] Address [address] [place] [address] Care Team Providers Care Iridologist Name Role Phone Unavailable Primary Care Provider [...] 410 mg/1.315 mL injectionIndica tions:Schizophr enia, paranoid Inject 1.315 mL into the muscle every 3 (three) months. 6 Active DENTAGEL 1.1 % gel Take 1 Tube by mouth 2 (two) [facility] [place] with this twice a day. 5 7 Active QUEtiapine (SEROQUEL) 100 mg tablet PER PSYCH 8 Active TRIUMEQ 600-50-300 mg tabIndications: AIDS TAKE 1 TABLET BY MOUTH EVERY DAY 30 Tab 5 9 Active loratadine (CLARITIN) 10 mg tabletIndicatio ns:Allergic rhinitis TAKE 1 TAB BY MOUTH ONCE DAILY NEEDED FOR ALLERGIES 30 Tab 9 Active fluticasone propionate (FLONASE) 50 mcg/actuation nasal sprayIndication s:Allergic rhinitis Place 1 [place] in both nostrils 2 (two) times daily Further refills requires appt with PCP 16 mL 0 Active Active Problems Problem Noted Date Diagnosed Date Immune to hepatitis B 06/29/2018 Immune to varicella 06/29/2018 Alcoholic fatty liver 04/14/2018 Overview (04/14/2018): Liver U/S 04/11/18 at [facility] shows increased hepatic echotexture c/w fatty infiltration. Alcohol abuse 06/03/2016 Allergic rhinitis 12/18/2014 Insomnia 12/18/2014 Overview (12/18/2014): F/u psych. Schizophrenia, paranoid 07/17/2014 Overview (07/17/2014): Psych f/u [facility]. Vitamin D deficiency 03/15/2013 AIDS Overview (03/26/2015): DX HIV positive in 2005. CD4 < 200 07/24/08 HLA B5701 negative through labwork 03/18/15 Polysubstance abuse Overview (03/15/2013): HX IVDA Mental disorder Overview [...] Plan of Treatment Not on file Insurance [facility] [address] [id number]
[2025-07-03 12:02] LABS: MANUAL DIFF FLAG NO
[2025-07-03 12:22] LABS: Hematocrit 44.7 % (42.0-52.0); Hemoglobin 15.0 g/dl (14.0-18.0); Imm Gran Abs Auto 0.04 X10*3/uL (0.00-0.03); Imm Gran Pct Auto 0.4 % (0.0-0.4); Lymphocytes Absolute Auto 2.6 X10*3/uL (1.2-4.9); Mean Corpuscular HGB Conc 33.6 g/dl (31.0-36.0); Mean Corpuscular Hemoglobin 30.9 pg (27.0-33.0); Mean Corpuscular Volume 92.2 fL (80.0-98.0); NRBC Abs Auto 0.000 X10*3/uL (0.0-0.012); NRBC Pct Auto 0.0 /100WBC (0.0-0.2); Platelet Count 172 X10*3/uL (160-400); Red Blood Count 4.85 X10*6/uL (4.60-5.80); White Blood Count 10.3 X10*3/uL (4.8-10.8)
[2025-07-03 12:36] LABS: Alanine Aminotransferase 34 U/L (0-40); Albumin Level 4.6 g/dL (3.5-5.0); Alkaline Phosphatase 84 U/L (39-117); Anion Gap 11 (12-20); Aspartate Amino Transferase 28 U/L (5-37); Blood Urea Nitrogen 12 mg/dL (9-16); Calcium 8.9 mg/dL (8.4-10.2); Carbon Dioxide 25 mmol/L (22-29); Chloride 107 mmol/L (96-108); Estimated Glomerular Filt Rate > 60; Potassium 4.0 mmol/L (3.3-5.1); Sodium 139 mmol/L (135-145); Total Protein 7.4 g/dL (6.5-8.0)
[2025-07-05 11:54] LABS: HIV RNA PCR Qn Copies 336 copies/mL (NOT DETECTED); HIV RNA PCR Qn Log Copies 2.53 (NOT DETECTED)
[2025-07-08 17:48] LABS: Absolute CD3 Count 1464 cells/uL (840-3060); Absolute CD8 Count 597 cells/uL (180-1170); Percent CD3 Cells 74 % (57-85); Percent CD8 Cells 30 % (12-42)
== END 2025-07-03 09:57 | disposition home or self-care (01) ==
LOC: HO.HHCL 09:56
PROVIDERS: PCP Internal Medicine; Visit Provider Student in an Organized Health Care Education/Training Program
DX: Z21 Asymptomatic human immunodeficiency virus [HIV] infection status (principal)
CPT/HCPCS: 36415; 80053; 82550; 85025; 86359; 86360; 87536

== ENCOUNTER 2025-07-22 09:05 | Emergency (ER) | payer OTHER, SELFPAY ==
--- NOTE | ~2025-07-22 | XR_ITS ---
CLINICAL HISTORY: right shoulder pain 3 view right shoulder Comparison: None Findings: Normal congruency of the glenohumeral joint. No acromioclavicular joint arthrosis or undersurface spurs. No fractures or bony erosions. No greater tuberosity cysts. Normal bone mineralization and soft tissues. No radiopaque foreign body. Normal visualized right chest. Impression: 1. No fracture, subluxations or dislocations right shoulder. This document has been electronically signed by: Gio Pelaez MD on 07/22/2025 10:17:23
[2025-07-22 09:15] VITALS: BP 145/85; PULSE 102; RESP 16; TEMP 36.3; O2SAT 96; BMI 31.0
--- NOTE | 2025-07-22 09:20 | ECG_ITS ---
Test Reason : CHEST PAIN Blood Pressure : */* mmHG Vent. Rate : 105 BPM Atrial Rate : 105 BPM P-R Int : 140 ms QRS Dur : 94 ms QT Int : 338 ms P-R-T Axes : 57 -16 47 degrees QTcB Int : 446 ms Sinus tachycardia Normal ECG No previous ECGs available Referred By: Generic ED Physician Electronically Signed By: Joseph Batista
[2025-07-22 09:37] LABS: Hematocrit 46.0 % (42.0-52.0); Hemoglobin 15.4 g/dl (14.0-18.0); Imm Gran Abs Auto 0.06 X10*3/uL (0.00-0.03); Imm Gran Pct Auto 0.4 % (0.0-0.4); Lymphocytes Absolute Auto 1.6 X10*3/uL (1.2-4.9); MANUAL DIFF FLAG NO; Mean Corpuscular HGB Conc 33.5 g/dl (31.0-36.0); Mean Corpuscular Hemoglobin 30.6 pg (27.0-33.0); Mean Corpuscular Volume 91.5 fL (80.0-98.0); NRBC Abs Auto 0.000 X10*3/uL (0.0-0.012); NRBC Pct Auto 0.0 /100WBC (0.0-0.2); Platelet Count 168 X10*3/uL (160-400); Red Blood Count 5.03 X10*6/uL (4.60-5.80); White Blood Count 15.2 X10*3/uL (4.8-10.8)
[2025-07-22 09:53] LABS: Alanine Aminotransferase 40 U/L (0-40); Albumin Level 4.9 g/dL (3.5-5.0); Alkaline Phosphatase 88 U/L (39-117); Anion Gap 13 (12-20); Aspartate Amino Transferase 33 U/L (5-37); Blood Urea Nitrogen 14 mg/dL (9-16); Calcium 9.4 mg/dL (8.4-10.2); Carbon Dioxide 25 mmol/L (22-29); Chloride 105 mmol/L (96-108); Creatinine Clr Calc Pharmacy 137.2; Estimated Glomerular Filt Rate > 60; Potassium 4.1 mmol/L (3.3-5.1); Sodium 139 mmol/L (135-145); Total Protein 7.8 g/dL (6.5-8.0)
[2025-07-22 10:01] LABS: Troponin-I High Sensitivity < 2.7 ng/L (<3.5-35.0)
--- NOTE | 2025-07-22 10:18 | ED_ITS ---
HPI - General Adult General Chief complaint: General Medical Stated complaint: R arm numbness w/ upper shoulder pain Time Seen by Provider: 07/22/25 10:11 Source: patient, RN notes reviewed and old records reviewed Mode of arrival: ambulatory Limitations: no limitations History of Present Illness ED Provider: Luis HPI narrative: Patient is a 39-year-old male with pmhx of HIV, HTN, alcohol use disorder, tobacco use disorder, Bipolar disorder, PTSD, schizoaffective disorder presenting to the ED with complaint of right posterior shoulder pain radiating down right arm with associated tingling since the middle of the night last night. Reports recent heavy lifting. Denies chest pain, palpitations, dyspnea. Did not take any OTC medications prior to arrival. States he also accidentally took an additional amlodipine with his other medications last night. Denies any dizziness, lightheadedness, syncope. Pain worse with movement and palpation. MD complaint: Right shoulder and arm pain Onset (ago): hour(s) Related Data Home Medications ?Medication ?Instructions ?Recorded ?Confirmed amlodipine 5 mg tablet 5 mg PO DAILY 06/30/2106/30 bictegravir 50 mg-emtricitabine 1 tab PO DAILY 1 06/30/21 200 mg-tenofovir alafenam 25 mg tablet (Biktarvy) multivitamin 1 tab PO DAILY 06/30/2109/19 paliperidone palm (3 month) 410 mg IM 06/30/21 1 mg/1.32 mL intramuscular syringe (Invega Trinza) quetiapine 100 mg tablet 100 mg PO BEDTIME 06/30/21 1 08/30/20 rosuvastatin 10 mg tablet 10 mg PO BEDTIME 06/30/21 vitamin E (dl, acetate) 180 mg 180 mg PO BID 06/30/21 06/30/21 (400 unit) capsule Previous Rx's ?Medication ?Instructions ?Recorded lidocaine 5 % topical patch 1 patch topical DAILY #15 ea 07/22/25 prednisone 10 mg tablet See Rx Instructions .Route 1 09/21/24 .COMPLEX #15 tabs Allergies Allergy/AdvReac Type Severity Reaction Status Date / Time No Known Allergies (No Known Allergy Verified 07/22/25 09:17 Allergies*) Review of Systems 2 Review of Systems: as per hpi Yes all other systems are reviewed and are negative Constitutional: Constitutional: Reports as per HPI [facility] Past Medical History Medical History (Updated 07/22/25 @ 10:38 by Misty Smith NP) PTSD (post-traumatic stress disorder) Bipolar disorder Schizoaffective disorder HIV (human immunodeficiency virus infection) Essential hypertension Alcohol abuse Tobacco abuse Surgical History (Updated 06/30/21 @ 11:15 by JUNE Rodriguez) No pertinent past surgical history Family History Family History (Updated 06/30/21 @ 11:15 by JUNE Rodriguez) Father No problems noted. Mother No problems noted. Social History Social History (Updated 06/30/21 @ 11:16 by JUNE Rodriguez) Patient Tobacco Use Status: Current everyday Tobacco user Tobacco use type: Cigarette Cigarette Packs Per Day: 2 Smoked in Last 30 Days: Yes Use of substances other than those prescribed or required for medical reasons: No Substance Use Type: Marijuana Any prior treatment program specific to substance use: No Advance Directives: No Advance Directives Information Provided: No Physical Exam ED Vital Signs: Vital Signs - 24 hr 07/22/25 09:15 Temperature 97.4 F Pulse Rate 102 H Respiratory Rate 16 Blood Pressure 145/85 H Pulse Oximetry 96 Oxygen Delivery Method Room Air BMI result Body Mass Index 31.0 Vital signs have been reviewed and appear to be correct. Blood pressure normal. Heart rate slightly tachycardic. Respiratory rate normal. Temperature normal. Oxygen saturation normal. Const General: cooperative, healthy appearing and no acute distress Orientation/consciousness: oriented to person, oriented to place, oriented to time and patient oriented x3 Limitations: no limitations [facility] Head: Yes normocephalic and Yes atraumatic Ears: external ears normal General nose exam: Normal external nose present Face and sinus: Yes face symmetric Mouth: oropharynx normal and moist mucous membranes Throat: Yes uvula midline Eyes Pupils: Equal, round and reactive pupils present Neck Neck: Yes normal visual inspection and Yes supple Resp Effort & Inspection: normal respiratory effort and able to speak in complete sentences Auscultation: clear to auscultation bilaterally Cardio Rate: regular rate Rhythm: regular rhythm Heart sounds: S1 normal heart sound present and S2 normal heart sound present GI Palpation (GI): Soft to palpation and nontender Auscultation: normoactive bowel sounds General: Yes no CVA tenderness Back/Spine/Pelvis Back: no CVA tenderness Skin General skin exam: elasticity normal and turgor normal Neuro General: oriented to person, oriented to place, oriented to time, patient oriented x3, moves all extremities, no focal motor deficits and CN's II-XI intact bilaterally Cranial nerves: Yes Equal, round and reactive pupils present Cognition (Neuro): normal cognition Extrem General: Yes full ROM, Yes no pedal edema and Yes no calf tenderness Right upper extremity: shoulder/upper arm Details: normal to inspection, tenderness Location: of the scapula and normal ROM and Extremity exam: right hand Details: normal to inspection, normal capillary refill, neuromotor exam normal, neurosensory exam normal, vascular exam Details: radial pulse present, ulnar pulse present and normal capillary refill and normal ROM of fingers Psych Mental Status: mental status grossly normal Affect: normal affect Thought process: Normal thought process present Medical Decision Making Medical Decision Making [facility] Narrative: Patient is a 39-year-old male with pmhx of HIV, HTN, alcohol use disorder, tobacco use disorder, Bipolar disorder, PTSD, schizoaffective disorder presenting to the ED with complaint of right posterior shoulder pain radiating down right arm with associated tingling since the middle of the night last night. On exam patient is awake, A+Ox3, VS WNL, afebrile, normal neurological exam without focal deficits, physical exam findings as above. Given reported symptoms and physical exam findings, initial differential includes but is not limited to muscle strain, cervical radiculopathy, rotator cuff injury. Do not suspect ACS, nerve entrapment. Labs notable for negative troponin, leukocytosis. Patient denies any fever, cough or other infectious symptoms to explain leukocytosis. X-ray right shoulder notable for no fracture or subluxation. My interpretation is in agreement with the radiologist's interpretation. EKG shows sinus tachycardia, no evidence of STEMI. Will discharge patient on course of prednisone and topical lidocaine patches. Advised follow up with PCP. Return precautions discussed. Patient verbalized understanding of and agreement with plan. Differential Diagnosis Differential Diagnoses: The differential diagnosis associated with the presentation includes as per [facility] Admission/Observation Consideration of admission/observation: Escalation of care including admission/observation considered Patient would have been admitted to the hospital and transferred to appropriate facility had their clinical presentation warranted hospital admission. Lab Data [facility] Lab Attestation statement: I reviewed the patient's lab results. as per mdm 07/22/25 09:31 07/22/25 09:31 Labs: Lab Results 07/22/25 Range/Units 09:31 WBC 15.2 H (4.8-10.8) X10*3/uL RBC 5.03 (4.60-5.80) X10*6/uL Hgb 15.4 (14.0-18.0) g/dl Hct 46.0 (42.0-52.0) % MCV 91.5 (80.0-98.0) fL MCH 30.6 (27.0-33.0) pg MCHC 33.5 (31.0-36.0) g/dl RDW 13.7 (11.0-16.0) % Plt Count 168 (160-400) X10*3/uL MPV 10.6 (9.4-12.4) fL Immature Gran % (Auto) 0.4 (0.0-0.4) % Neut % (Auto) 84.6 H (45-73) % Lymph % (Auto) 10.5 L (20-40) % Cherry % (Auto) 3.8 (2-11) % Eos % (Auto) 0.4 (0-4) % Baso % (Auto) 0.3 (0-2) % Lymph # (Auto) 1.6 (1.2-4.9) X10*3/uL Cherry # (Auto) 0.6 (0.1-1.2) X10*3/uL Eos # (Auto) 0.1 (0.0-0.4) X10*3/uL Baso # (Auto) 0.0 (0.0-0.2) X10*3/uL Abs Immat Gran (auto) 0.06 H (0.00-0.03) X10*3/uL Absolute Neuts (auto) 12.8 H (2.0-8.3) x10*3/uL Absolute Nucleated RBC 0.000 (0.0-0.012) X10*3/uL Nucleated RBC % (auto) 0.0 (0.0-0.2) /100WBC Sodium 139 (135-145) mmol/L Potassium 4.1 (3.3-5.1) mmol/L Chloride 105 (96-108) mmol/L Carbon Dioxide 25 (22-29) mmol/L Anion Gap 13 (12-20) BUN 14 (9-16) mg/dL Creatinine 0.84 (0.5-1.4) mg/dL Estim Creat Clear Calc 137.2 Estimated GFR > 60 Random Glucose 118 H (60-115) mg/dL Calcium 9.4 (8.4-10.2) mg/dL Total Bilirubin 0.3 (0.0-1.0) mg/dL AST 33 (5-37) U/L ALT 40 (0-40) U/L Alkaline Phosphatase 88 (39-117) U/L Troponin I High Sens < 2.7 (<3.5-35.0) ng/L Total Protein 7.8 (6.5-8.0) g/dL Albumin 4.9 (3.5-5.0) g/dL Independent Interpretation I performed an independent interpretation of an: EKG (sinus tachycardia, rate 105, normal TX interval and QTc) and Plain X-Ray Interpretation: Right shoulder x-ray is without evidence of acute fracture or subluxation. Radiology Impression Discussion of test interpretation with radiology: I have reviewed the radiologist's reading. Radiologist Impression: 3 view right shoulder Comparison: None Findings: Normal congruency of the glenohumeral joint. No acromioclavicular joint arthrosis or undersurface spurs. No fractures or bony erosions. No greater tuberosity cysts. Normal bone mineralization and soft tissues. No radiopaque foreign body. Normal visualized right chest. Impression: 1. No fracture, subluxations or dislocations right shoulder. External Record Review External record reviewed: Inpatient record, Office record and Outpatient record Prescription Management I considered prescription management with: Pain Medication and Other Discharge Plan Discharge Clinical Impression: Cervical radiculopathy Patient Disposition: Home, Self-Care Instructions: Cervical Radiculopathy (ED) Additional Instructions: You were evaluated in the emergency department today for right shoulder and arm pain which is likely due to inflammation of a nerve in your neck called cervical radiculopathy. You are being treated with a tapering course of steroids to decrease inflammation. You have also been prescribed topical lidocaine patches which you can wear for up to 12 hours in a 24 hour period. Do not apply heat directly over the patches. You should perform gentle stretching exercises daily. Follow up with your primary care provider as needed. Return to the emergency department if you develop worsening pain, new weakness, numbness, tingling, chest pain or shortness of breath, palpitations, dizziness or lightheadedness or any other new or concerning symptoms. Prescriptions: New prednisone 10 mg tablet See Rx Instructions .ROUTE .COMPLEX Qty: 15 0RF Rx Instructions: 50mg (5 tabs) x1 day, then 40 mg (4 tabs) x1 day, then 30 mg (3 tabs) x1 day, then 20 mg (2 tabs) times 1 day, then 10 mg (1 tab) x1 day lidocaine 5 % adhesive patch,medicated 1 patch topical DAILY Qty: 15 0RF Rx Instructions: leave on most painful area for up to 12 hrs No Action Biktarvy 50-200-25 mg tablet 1 tab PO DAILY amlodipine 5 mg tablet 5 mg PO DAILY Invega Trinza 410 mg/1.315 mL syringe IM quetiapine 100 mg tablet 100 mg PO BEDTIME rosuvastatin 10 mg tablet 10 mg PO BEDTIME vitamin E (dl, acetate) 180 mg (400 unit) capsule 180 mg PO BID multivitamin Tablet 1 tab PO DAILY Print Language: Congolese
[2025-07-22 11:11] VITALS: BP 145/85; PULSE 102; RESP 16; TEMP 36.3; O2SAT 96
== END 2025-07-22 11:12 | disposition home or self-care (01) ==
PROVIDERS: Emergency Provider Emergency Medicine Emergency Medical Services; PCP Internal Medicine
DX: M25.511 Pain in right shoulder (principal); R20.0 Anesthesia of skin; M54.12 Radiculopathy, cervical region; R00.0 Tachycardia, unspecified; R07.89 Other chest pain; Z79.899 Other long term (current) drug therapy
CPT/HCPCS: 36415; 73030; 80053; 84484; 85025; 93005; 99283; 99284

== ENCOUNTER → 2025-07-22 09:20 | Outpatient (BNV) | payer OTHER, SELFPAY | PROVIDERS: Emergency Provider Emergency Medicine Emergency Medical Services; PCP Internal Medicine; Visit Provider Internal Medicine Cardiovascular Disease | DX: R00.0 Tachycardia, unspecified (principal) | CPT/HCPCS: 93010 ==

== ENCOUNTER → 2025-07-22 10:02 | Outpatient (BNV) | payer OTHER, SELFPAY | PROVIDERS: Emergency Provider Emergency Medicine Emergency Medical Services; PCP Internal Medicine; Visit Provider Radiology Diagnostic Radiology | DX: M25.511 Pain in right shoulder (principal) | CPT/HCPCS: 73030 ==

== ENCOUNTER 2025-08-27 13:14 | Outpatient (REF) | payer OTHER, SELFPAY ==
[2025-08-27 16:25] LABS: MANUAL DIFF FLAG NO
[2025-08-27 16:45] LABS: Hematocrit 43.2 % (42.0-52.0); Hemoglobin 14.7 g/dl (14.0-18.0); Imm Gran Abs Auto 0.03 X10*3/uL (0.00-0.03); Imm Gran Pct Auto 0.3 % (0.0-0.4); Lymphocytes Absolute Auto 2.9 X10*3/uL (1.2-4.9); Mean Corpuscular HGB Conc 34.0 g/dl (31.0-36.0); Mean Corpuscular Hemoglobin 30.8 pg (27.0-33.0); Mean Corpuscular Volume 90.4 fL (80.0-98.0); NRBC Abs Auto 0.000 X10*3/uL (0.0-0.012); NRBC Pct Auto 0.0 /100WBC (0.0-0.2); Platelet Count 169 X10*3/uL (160-400); Red Blood Count 4.78 X10*6/uL (4.60-5.80); White Blood Count 9.2 X10*3/uL (4.8-10.8)
[2025-08-27 17:52] LABS: Alanine Aminotransferase 32 U/L (0-40); Albumin Level 4.6 g/dL (3.5-5.0); Alkaline Phosphatase 79 U/L (39-117); Anion Gap 12 (12-20); Aspartate Amino Transferase 28 U/L (5-37); Blood Urea Nitrogen 12 mg/dL (9-16); Calcium 9.5 mg/dL (8.4-10.2); Carbon Dioxide 27 mmol/L (22-29); Chloride 107 mmol/L (96-108); Estimated Glomerular Filt Rate > 60; Potassium 4.1 mmol/L (3.3-5.1); Sodium 142 mmol/L (135-145); Total Protein 7.6 g/dL (6.5-8.0)
[2025-08-29 10:14] LABS: HIV RNA PCR Qn Copies 443 copies/mL (NOT DETECTED); HIV RNA PCR Qn Log Copies 2.65 (NOT DETECTED)
== END 2025-08-27 13:15 | disposition home or self-care (01) ==
LOC: HO.HHCL 13:14
PROVIDERS: PCP Internal Medicine; Referring Provider Student in an Organized Health Care Education/Training Program; Visit Provider Internal Medicine
DX: B20 Human immunodeficiency virus [HIV] disease (principal)
CPT/HCPCS: 36415; 80053; 85025; 87536